=== PATIENT | female | born 1990 | race Caucasian/White ===

== ENCOUNTER → 2018-08-25 11:11 | Outpatient (CLI) | payer OTHER, SELFPAY ==
[2014-03-13 20:21] VITALS: BMI 26.7
[2018-08-25 17:51] LABS: Chlamydia Trachomatis by PCR Negative (Negative); Neisserai gonorrhoeae by PCR Negative (Negative); Probe Check PASS; Sample Adequacy Control PASS; Specimen Processing Control PASS
[2018-08-29 14:25] LABS: HPV Reflexed? NOT INDICATED
== END ==
PROVIDERS: Visit Provider Obstetrics & Gynecology
DX: Z12.4 Encounter for screening for malignant neoplasm of cervix (principal); Z11.3 Encounter for screening for infections with a predominantly sexual mode of transmission; Z32.01 Encounter for pregnancy test, result positive
CPT/HCPCS: 87491; 87591; 88175; G0145

== ENCOUNTER → 2018-09-13 11:45 | Outpatient (CLI) | payer OTHER, SELFPAY ==
[2014-03-13 20:21] VITALS: BMI 26.7
[2018-09-13 13:51] LABS: Color, Urine Yellow (Yellow); Glucose, Dipstick Normal (Normal); Ketone-Dipstick Negative (Negative); Leukocyte Esterase-Dipstick Negative /ul (Negative); Nitrite-Dipstick Negative (Negative); Occult Blood-Urine Negative /ul (Negative); Protein-Dipstick Negative (Negative); Specific Gravity, Urine 1.005 (1.002-1.030); Urine Bilirubin Dipstick Negative (Negative); Urine Clarity Sl. Cloudy (Clear); Urine Urobilinogen Normal (Normal)
[2018-09-13 13:59] LABS: COTININE Drug Screen Negative (<200 ng/mL)
[2018-09-13 14:02] LABS: Amphetamine Urine VISTA NEGATIVE (<1000 ng/mL); Barbiturate Urine VISTA NEGATIVE (< 200 ng/mL); Benzodiazepine Urine VISTA NEGATIVE (< 200 ng/mL); Cocaine Urine VISTA NEGATIVE (< 300 ng/mL); Ecstacy Urine VISTA NEGATIVE (< 500 ng/mL); Methadone Urine VISTA NEGATIVE (< 300 ng/mL); PCP Urine VISTA NEGATIVE (< 25 ng/mL); THC Urine VISTA NEGATIVE (< 50 ng/mL); Vista UDS pH Range 6
[2018-09-13 15:39] LABS: Absolute Lymphocyte Count 2.28 X10^3/ul (0.83-4.51); Absolute Neutrophil Count 5.1 X10^3/uL (2.0-7.7); Basophil# 0.03 X10^3/uL; Basophil% 0.4 % (0-1); Eosinophils% 1.3 % (0-5); Hematocrit 41.7 % (37-47); Hemoglobin 13.9 g/dl (12.0-15.0); Lymphocyte # 2.28 X10^3/ul (4.0); Lymphocyte % 28.6 % (19-41); Mean Corp Hgb Conc 33.3 g/gl (32-36); Mean Corpuscular Hgb 27.9 pg (27.0-32.0); Mean Corpuscular Volume 83.7 fL (81-99); Mean Platelet Vol. 9.9 fl (6.2-12.0); Monocyte# 0.41 X10^3/uL; Monocyte% 5.1 % (0-10); Neutrophil # 5.11 X10^3/uL (2.7-7.7); Neutrophil % 64.1 % (47-70); Platelet Count 297 K/mm3 (150-450); RBC Distribution Width CV 13.4 % (11.6-14.6); RBC Distribution Width SD 40.6 fl (35.1-43.9); Red Blood Count 4.98 M/mm3 (4.2-5.4)
[2018-09-13 15:42] LABS: POSITIVE COUNT NO; POSITIVE DIFFERENTIAL NO; POSITIVE MORPHOLOGY NO
[2018-09-13 16:02] LABS: Thyroid Stim Hormone (TSH) 3.32 uIU/mL (0.358-3.74)
[2018-09-13 17:00] LABS: HIV - WCH Non-Reactive (Nonreactive); Rubella IgG 109.6 IU/mL
[2018-09-16 03:32] LABS: Prenatal RPR NONREACTIVE (NONREACTIVE)
[2018-09-16 12:25] LABS: HEPATITIS B SURFACE AG Negative (Negative); Hep C Antibodies 0.1 s/co ratio (0.0-0.9)
== END ==
PROVIDERS: Visit Provider Obstetrics & Gynecology
DX: Z34.81 Encounter for supervision of other normal pregnancy, first trimester (principal)
CPT/HCPCS: 36415; 80307; 81002; 84443; 85025; 86703; 86762; 86803; 87340

== ENCOUNTER → 2019-01-12 10:24 | Outpatient (CLI) | payer OTHER, SELFPAY ==
[2019-01-12 10:47] LABS: Hematocrit 35.6 % (37-47); Hemoglobin 11.4 g/dL (12.0-15.0); Mean Corpuscular Hgb 27.8 pg (27.0-32.0); Mean Corpuscular Volume 86.8 fL (81-99); Mean Platelet Vol. 10.4 fl (6.2-12.0); Platelet Count 223 K/mm3 (150-450); RBC Distribution Width CV 13.2 % (11.6-14.6); RBC Distribution Width SD 41.6 fl (35.1-43.9); White Blood Count 10.7 K/mm3 (4.4-11.0)
[2019-01-12 10:54] LABS: Glucose Challenge Gest 1H 50g 148 mg/dL (70-140)
== END ==
PROVIDERS: Visit Provider Obstetrics & Gynecology
DX: Z34.83 Encounter for supervision of other normal pregnancy, third trimester (principal)
CPT/HCPCS: 36415; 82950; 85027

== ENCOUNTER → 2019-01-20 10:35 | Outpatient (CLI) | payer OTHER, SELFPAY ==
[2014-03-13 20:21] VITALS: BMI 26.7
[2019-01-20 16:04] LABS: Glucose Challenge Gest 1H 50g 154 mg/dL (70-140)
== END ==
PROVIDERS: Visit Provider Obstetrics & Gynecology
DX: Z34.83 Encounter for supervision of other normal pregnancy, third trimester (principal)
CPT/HCPCS: 36415; 82950

== ENCOUNTER → 2019-01-25 09:46 | Outpatient (CLI) | payer OTHER, SELFPAY ==
[2019-01-25 11:11] LABS: Glucose GTT-Gestation. Fasting 78 mg/dL (<105)
[2019-01-25 12:28] LABS: Glucose GTT-Gestational 1 Hr 164 mg/dL (<190)
[2019-01-25 13:57] LABS: Glucose GTT-Gestational 3 Hr 127 L (<145)
[2019-01-25 13:57] LABS: Glucose GTT-Gestational 2 Hr 150 mg/dL (<165)
== END ==
PROVIDERS: Obstetrics & Gynecology; Referring Provider Obstetrics & Gynecology; Visit Provider Obstetrics & Gynecology
DX: O24.912 Unspecified diabetes mellitus in pregnancy, second trimester (principal); Z3A.00 Weeks of gestation of pregnancy not specified
CPT/HCPCS: 36415; 82951; 82952

== ENCOUNTER → 2019-03-24 15:44 | Outpatient (CLI) | payer OTHER, SELFPAY ==
[2014-03-13 20:21] VITALS: BMI 26.7
== END ==
PROVIDERS: Visit Provider Obstetrics & Gynecology
DX: O99.89 Other specified diseases and conditions complicating pregnancy, childbirth and the puerperium (principal); R30.0 Dysuria; R39.15 Urgency of urination; Z3A.00 Weeks of gestation of pregnancy not specified
CPT/HCPCS: 87077; 87086; 87088; 87186

== ENCOUNTER 2019-03-29 10:25 | Inpatient (IN) | payer OTHER, SELFPAY ==
[2014-03-13 20:21] VITALS: BMI 26.7
[2019-03-29] VITALS (13 sets, daily range): BP systolic 104–128; BP diastolic 65–83; PULSE 76–110; RESP 16–20; TEMP 36.3–37.4; O2SAT 96–99; BMI 25.6
--- NOTE | 2019-03-29 09:23 | PCM.HP.BLA ---
History and Physical Date of Admission: 03/29/19 [facility] [place] ANTEPARTUM RECORD - HISTORY AND PHYSICAL (03/29/2019) Name: RAIMUNDO LAINEZ History of This : This is a 28-year-old patient who presents for her second section. 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 Given this, the patient desires general anesthesia with the surgery. OB Physician: ERIC [place]'s Physician: PED MEMBERSHIP SALES MANAGER ...................................................................... : 1990 Age: 28 [address]: [address] [place] [address] Phone: ([phone] (O) [phone] Insurance Carrier: [employer] [id number] Emergency Contact: DAVIN LAINEZ [phone] ...................................................................... Final ALISE: 04/05/19 By Ultrasound: 10 weeks 6 days PARITY: (G-Total Pregnancies P-Fullterm,Premature,Induced AB,Spont AB, Ectopics, Multiple,Living) ALISE CONFIRMATION: By LMP: 06/29/18 Initial Exam: 04/05/19 By First Ultrasound Exam: 03/30/19 Final ALISE: 04/05/19 GBS: Group B Beta Streptococcus is not isolated. OB PROBLEM LIST: ALLERGIC to Benadryl and Prednisone Brachial Plexus Neuropathy (patient) Elevated 1 hour PG--3 hr GTT 3 hr GTT all WNL 's niece has Down Syndrome MSAFP and CF testing declined Prior C/S delivery 2013.. 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 Drug Use - denies use of street drugs Sexual Activity - Residence - lives with Place of - [place] Hours Worked - 40 hours per week Spouse-Sig Other Name - Davin Lainez Spouse-Sig Other Occupation - [employer] Spouse-Sig Other Phone No - [phone] cell Children Name(s) - Carlos Conte 03/2014 (jhony) PRIOR DELIVERY HISTORY DEL DATE GEST LAB WT LB WT OZ TYPE ANES LABOR TX 03 Mar 25 42 8 7 8 C-Sec Epidural No ANTEPARTUM FLOW CHART VISIT GE RTC FU F F VT U U DATE WK MD WKS HT PN HR M SS BP ED WT VT GL D EF ST __ ____ ___ __ __ ___ __ __ __ ___ __ __ __ ___ __ 11 Mar JMW 3 38 + + 106/0 0 146 - - 04 Mar JMW 1 37 + + 118/84 0 145 - - Feb JMW 1 36 + + 104/70 0 144 - tr Feb JMW 1 35 + + 134/72 tr 151 tr - Feb JMW 2 33 + + 92/78 0 144 - - Feb 09 JMW 2 31 + + 112/66 tr 144 tr - 03 Feb 06 JMW 3 29 + + 104/72 0 142 - 1+ 06 Jan 03 JMW 4 24 + + 130/68 0 143 - - Nov 29 SHM 4 20 + + 122/72 sl 137 tr - Oct 23 JMW 5 14 + O 122/76 0 134 - - Sep 19 DS 4 12 ? U+ 90/68 0 136 - - ANTEPARTUM NOTE(S): Mar 22 2019: Doing Well and Good FM Mar 15 2019: Good FM Mar 08 2019: feeling well. Mar 02 2019: Good FM, Occ discomforts Feb 16 2019: feeling well. Feb 02 2019: Feeling Well, Good FM Jan 12 2019: see note, One Hr PG today Dec 16 2018: Glucola/Instructions Given,Good FM Nov 18 2018: doing well, comp u/s today Oct 11 2018: Doing Well, Declines AFP Sep 13 2018: see note COMPREHENSIVE ANTEPARTUM NOTE(S): Mar 24 2019: Raimundo is here for a UTI check 38 w 2 d GA. 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 She reports good FM. Denies spotting/leaking fluid/cramping. Weight in office today: 146.6 lbs. Temp: 98.1 (orally), and B/P: 120/80 (left arm, reg cuff, sitting). CCMS urine specimen obtained. Urine is yellow and cloudy, no strong odor noted. Long urine dip shows 2+ leukocytes, 1+ protein, ph of 6.6, 2+ blood, specific gravity of 1.010, and TR glucose; all other values are NEG. Report to Dr. Gibbs, urine to be sent for C+S, and Keflex escripted to pt's pharmacy; Pyrdium also escripted, but Raimundo states that she will likely decline that prescription. Reviewed directives with Raimundo, she is aware that C+S results will take 2-3 days, and unless she hears otherwise from this office, she needs to complete her entire course Keflex. Encouraged to increase her water intake, and stop drinking/eating sugary drinks/foods, and drinks and foods with caffeine. Bedroom and bathroom hygiene reviewed. She will call the office if her s/s do not improve, or become worse. AW Mar 22 2019: Raimundo, and son are here for visit and post op instructions. Baby active. Edema only occ at end of the day. Op permit signed. Informational booklet about OR and CS given. Given info and directions twice about surgical scrub. Understanding voiced. Excited about baby. MICHAEL. Feb 02 2019: (m,m*) Reports +FM, +FHR 158. Baby very active. No questions or concerns today. Reviewed danger signs and when to call. Will return in 2 weeks to see JW. - Jan 12 2019: Raimundo is being seen for PNV. Pt is feeling well. Pt arrived late for Glucola drawn today. AM Nov 18 2019: US anatomy wnl, 79th%. MALE, circ planned. Pt leaning towards repeat C/S. Sep 13 2018: Doing well. US completed today and is c/w LMP dating. NOB nurse intake and labs completed today. Sep 13 2018: Raimundo is here for her NOB visit at 10 w 6 d, she is a with an ALISE of 04/05/2019. She and her , Davin, have a 4 year old son at home; both accompany Raimundo today. Her son was delivered at [facility] by C/S due to non-reassuring FHT's. At this time, she is not sure if she wants to have a repeat C/S or attempt a . Past history updated. Delivery at [facility] is planned, and she will breastfeed. Office practice patterns reviewed, including labs that will be collected today. Emergencies/danger signs to report, round ligament pain, reporting s/s of a UTI, and common OTC medications approved/not approved for use during reviewed. She states that she generally feels well, and only feel nauseous when her stomach is empty. Reviewed need for small frequent meals with protein included throughout the day and adequate water hydration of at least one gallon per 24 hours. She takes an OTC vitamin and tolerates this well. Raimundo also takes an Adrenal supplement and states that this has helped her significantly, especially with anxiety. She is a life long non-smoker, and denies use of drugs or ETOH. Genetic Screening form completed, her has a niece with Down Syndrome. Raimundo declines MSAFP and CF testing, consent signed as such. She has Brachial Plexus Neuropathy. Dietary and water needs reinforced, including caloric needs, recommended weight gain, limiting empty calories, and limiting caffeine to one cup a day. Printed guide for food safety provided with review. Exercise recommendation and restrictions for lifting reviewed. Raimundo states that she understands all information provided during NOB visit, and she has no questions following same. AW New Aug 29 2018: pap and GC/chlamydia NEG EB Aug 25 2018: Raimundo is a 28 yr old Gr2, P1 here w/her , Davin and their son, Carlos, for Missed Menses. Hx regular monthly periods. LMP 06/29/18 which would make her 8 wks 1 day, ALISE 04/05/19. Reporting nausea, some vomiting particularly when she gets nervous or anxious. No cramping or bleeding. Reviewed importance of hydration with at least 10-12 large glasses water daily. Taking a PNV; diffuses essential oils, but can not say which ones. Hx C/S @ 41 wks, non-reassurring FH tracing. Hx Brachial Plexus Neruopathy as a child. Some contractures of her fingers and limited movements. Pap, GC/Chlamydia done today. Non-smoker. informational materials given and reviewed otc meds ok to take. NO NSAIDS. kbm REVIEW OF SYSTEMS: GENERAL - Denies fever, or chills SKIN - Denies rash, new skin lesions, or change in moles EYES - Denies blurred vision, or change in visual acuity EARS - Denies ear pain, or difficulty hearing NOSE - Denies nasal congestion, discharge, or bleeding MOUTH - Denies sore throat, or difficulty swallowing NECK - Denies pain or swelling RESPIRATORY - Denies shortness of breath, cough, wheezing CARDIOVASCULAR - Denies palpitations, chest pain, orthopnea, PND, peripheral edema, syncope or claudication GASTROINTESTINAL - Denies nausea, vomiting, diarrhea, constipation, Denies abdominal pain, melena and or bright red blood GENITOURINARY - Denies dysuria, frequency of urination, urgency, or hesitancy MUSCULOSKELETAL - Denies joint or muscle pain, or back pain NEUROLOGICAL - Denies localized numbness, weakness, or tingling PSYCHIATRIC - Denies depression, anxiety, substance abuse or suicide attempts ENDOCRINE - Denies heat or cold intolerance, weight loss or gain, increasing thirst HEMATO-IMMUNOLOGIC - Denies easy bruising, bleeding, oral ulcerations or recurrent infections GENETICS SCREENING: Age 35+ years: No Thalassemia: No Neural Tube Defect: No Down Syndrome: 's niece SUNDAR-SACHS: No Sickle Cell Disease: No Hemophilia: No Musc. Dystrophy: No Cystic Fibrosis: No-declines screening [place] Chorea: No Mental Retardation: No Fragile X: No Other genetic: No Other defects: No SABs/still births: No Drugs since LMP: No INFECTION HISTORY: High risk AIDS: No High risk Hepatitis: No Exposed to TB: No Exposed to Herpes: No Rash/viral illness since LMP: No History of STD: No MENSTRUAL HISTORY: *Menses Regularity: RegularMenarche (Age Onset): 13* PAST SUMMARY: PARITY: 1. Total Pregnancies............ 2 2. Full Term Pregnancies........ 1 3. Premature.................... 0 4. Abortions - Induced.......... 0 5. Abortions - Spontaneous...... 0 6. Ectopics..................... 0 7. Multiple Births.............. 0 8. Living Children.............. 1 PAST #1: Date of :.................. 03/14/14 Gestation Weeks:................ 42 Length of labor(hours):......... 8 Sex:............................ M Weight-lbs:............... 7 Weight-oz:................ 8 Type of Delivery:............... C-Sect Type of Anesthesia:............. Epidural Place of Delivery:.............. [place] Treatment of Labor?:.... No Comment: IOL, NON-REASS FHT'S PHYSICAL EXAMINATION General Appearence: 28 yo female in no acute distress Vital Signs: AF, VSS Heart: RRR without rubs or gallops Lungs: CTA x 2 Breasts: deferred Abdomen: gravid Pelvis: Cervix: Presentation: cephalic Station: Fetus: Size: AGA Movement: present Heart: present Labs for : RAIMUNDO LAINEZ since 07/09/2018 ORDER DATEIN DESCRIPTION VALUE UNITS RANGE A+ COMMENT CULTURE, URINE 03/24/19 NOTE Original Ordering Provider: Michelle Gibbs Urine Culture ORGANISM 1: Enterococcus faecalis [place] Count 25,000-50,000 Enterococcus faecalis: REACTION Ampicillin $ <=2 S Ciprofloxacin $ <=0.5 S Gentamicin SYN-S S Levofloxacin $ 1 S Linezolid $$$$ 2 S Nitrofurantoin $ <=16 S Streptomycin $ SYN-S S Tetracycline NF <=1 S Vancomycin $ <=0.5 S Reference Range: S= Susceptible, I= Intermediate, R= Resistant MICS are expressed in micrograms per mL * CLSI guidelines does not recommend testing of cephalosporins. This interpretation is deduced from Beta-lactam/penicillin results. (NF) indicates non-formulary drug at [facility]. Approval by Infectious Disease Specialist required before non-formulary drugs may be ordered and/or dispensed. Reviewed by MICHELLE CULTURE URINE 02/07/19 NOTE Original Ordering Provider: JOELLE FORDE CULTURE URINE _URINE CULTURE_ M I C R O B I O L O G Y R E P O R T FINAL Antimicrobial Susceptibility and Organism Identification Report Specimen Number : [id number] Requested : 02/07/19 Specimen Source : CLEAN CATCH URINE Collected : 02/07/19 10:00 [place] of Isolation : OUTPATIENT Received : 02/07/19 10:00 Requesting Physician : EULA Patient/Specimen Tests and Comments Specimen Comments FINAL REPORT: URINE COLONY COUNT: > THAN 100,000 CFU/CC STREPTOCOCCUS VIRIDANS GROUP Tech : Source : CLEAN CATCH URINE ID # : [id number] FINAL Report Date : / / : Collected : 02/07/19 10:00 02/10/[id number]. 02/09/[id number]. 02/10/[id number] Reviewed by MICHELLE GESTATIONAL GTT 3HR 100G 01/25/19 NOTE Original Ordering Provider: Joelle Forde GLU GTT-FASTING 78 mg/dL <105 GLUCOSE TOLERANCE TEST FOR Reference Interval GESTATIONAL DIABETES Fasting <105 mg/dL 1 hour <190 mg/dl 2 hour <165 mg/dl 3 hour <145 mg/dl GLU GTT- 1HR 164 mg/dL <190 GLU GTT- 2HR 150 mg/dL <165 GLU GTT- 3HR 127 L <145 Reviewed by MICHELLE GLUCOSE CHALLENGE GEST 1H 50G 01/20/19 NOTE Original Ordering Provider: Joelle Forde GLU GEST 50G 1H 154 mg/dL 70-140 H Reviewed by MICHELLE GLUCOSE CHALLENGE GEST 1H 50G 01/12/19 NOTE Original Ordering Provider: Joelle Forde GLU GEST 50G 1H 148 mg/dL 70-140 H Reviewed by JOELLE CBC-COMPLETE BLOOD CNT NO DIFF 01/12/19 NOTE Original Ordering Provider: Joelle Forde WBC 10.7 K/mm3 4.4-11.0 RBC 4.10 M/mm3 4.2-5.4 L HGB 11.4 g/dL 12.0-15.0 L HCT 35.6 % 37-47 L MCV 86.8 fL 81-99 MCH 27.8 pg 27.0-32.0 MCHC 32.0 g/dL 32-36 RDW CV 13.2 % 11.6-14.6 RDW SD 41.6 fl 35.1-43.9 PLT 223 K/mm3 150-450 MPV 10.4 fl 6.2-12.0 Reviewed by JOELLE HEPATITIS C ANTIBODIES 09/13/18 NOTE Original Ordering Provider: Cristino Culp HEP C AB 0.1 s/co ratio 0.0-0.9 Negative: < 0.8 Indeterminate: 0.8 - 0.9 Positive: > 0.9 The CDC recommends that a positive HCV antibody result be followed up with a HCV Nucleic Acid Amplification test (427020). Reviewed by MICHELLE HEPATITIS B SURFACE AG 09/13/18 NOTE Original Ordering Provider: Cristino Culp HB SURF AG Negative Negative Performed at: [place] [id number] [employer] Operator: Gonzalo Lomas PhD, Phone: [phone] Reviewed by MICHELLE RPR 09/13/18 NOTE Original Ordering Provider: Cristino Culp RPR NONREACTIVE NONREACTIVE Reviewed by MICHELLE T AND S-NO CHARGE W/PNP 09/13/18 Reason for Type AND Screen/Red Cells: Surgery? N [facility]~[address] [place], [address]~ BLOOD TYPE GEL A POSITIVE N AB SCREEN GEL NEGATIVE N Reviewed by CRISTINO HIV - [facility] 09/13/18 NOTE Original Ordering Provider: Cristino Culp HIV - [facility] Non-Reactive Nonreactive Reviewed by CRISTINO RUBELLA IGG 09/13/18 NOTE Original Ordering Provider: Cristino Culp RUBELLA IGG 109.6 IU/mL Antibody results Interpretation of Immune Status < 5 IU/ml Presumed Non-immune 5 - < 10 IU/ml Equivocal > or = 10 IU/ml Presumed Immune Reviewed by CRISTINO THYROID STIM HORMONE (TSH) 09/13/18 NOTE Original Ordering Provider: Cristino Culp TSH 3.32 uIU/mL 0.358-3.74 Reviewed by CRISTINO CBC W/DIFF, AUTOMATED 09/13/18 NOTE Original Ordering Provider: Cristino Culp WBC 8.0 K/mm3 4.4-11.0 RBC 4.98 M/mm3 4.2-5.4 HGB 13.9 g/dl 12.0-15.0 HCT 41.7 % 37-47 MCV 83.7 fL 81-99 MCH 27.9 pg 27.0-32.0 MCHC 33.3 g/gl 32-36 RDW CV 13.4 % 11.6-14.6 RDW SD 40.6 fl 35.1-43.9 PLT 297 K/mm3 150-450 MPV 9.9 fl 6.2-12.0 NEUT% 64.1 % 47-70 LY% 28.6 % 19-41 MONO% 5.1 % 0-10 EO% 1.3 % 0-5 BASO% 0.4 % 0-1 IM GRAN % 0.500 % 0.0-0.9 IG% - Immature Granulocytes (promyelocytes, myelocytes and metamyelocytes) > 1% indicates that a LEFT SHIFT is Present. ABSOLUTE NEUT 5.1 X10 3/uL 2.0-7.7 ABSOLUTE LYMPH 2.28 X10 3/ul 0.83-4.51 Reviewed by CRISTINO NICOTINE URINE DRUG SCREEN 09/13/18 NOTE Original Ordering Provider: rCistino Culp TO BE CONFIRMED CONFIRMATORY TESTING FOR ALL POSITIVE URINE DRUG SCREEN RESULTS WILL ONLY BE SENT OUT UPON PHYSICIAN ORDER. The results of Urine Drug Screen methods provide only preliminary analytical test results. A more specific alternate chemical method must be used in order to obtain a confirmed analytical result. Gas chromatography/mass spectrometery (GC/MS) is the preferred confirmatory method. Clinical consideration and professional judgement should be applied to any drug of abuse test result, particularly when preliminary positive results are used. COT DRG SCREEN Negative <200 ng/mL Cotinine is the first-stage metabolite of Nicotine. Reviewed by CRISTINO URINE DRUG SCREEN (VISTA) 09/13/18 NOTE Original Ordering Provider: Cristino Culp TO BE CONFIRMED CONFIRMATORY TESTING FOR ALL POSITIVE URINE DRUG SCREEN RESULTS WILL ONLY BE SENT OUT UPON PHYSICIAN ORDER. ANISHATA Urine Drug Screen methods provide only preliminary analytical test results. A more specific alternate chemical method must be used in order to obtain a confirmed analytical result. Gas chromatography/mass spectrometery (GC/MS) is the preferred confirmatory method. Clinical consideration and professional judgement should be applied to any drug of abuse test result, particularly when preliminary positive results are used. URINE TCA TESTING MUST BE ORDERED SEPARATELY. USE TEST MNEMONIC: [place] UDS PH 6 AMPHETAMINES NEGATIVE <1000 ng/mL BARBITIURATES NEGATIVE < 200 ng/mL BENZODIAZIPINE NEGATIVE < 200 ng/mL COCAINE NEGATIVE < 300 ng/mL ECSTACY NEGATIVE < 500 ng/mL METHADONE NEGATIVE < 300 ng/mL OPIATES NEGATIVE < 300 ng/mL PCP NEGATIVE < 25 ng/mL THC NEGATIVE < 50 ng/mL Reviewed by CRISTINO Reviewed by CRISTINO Reviewed by CRISTINO URINALYSIS, ROUTINE (DIPSTICK) 09/13/18 NOTE Original Ordering Provider: Cristino Culp COLOR Yellow Yellow CLARITY Sl. Cloudy Clear GLUCOSE, UR Normal mg/dl Normal BILIRUBIN URINE Negative mg/dL Negative KETONE UR Negative mg/dl Negative SP.GR. DIPSTX 1.005 1.002-1.030 PH UR 7.0 5.0 - 8.0 PROT DIPSTX Negative mg/dl Negative UROBILI Normal mg/dl Normal NITRITE UR Negative Negative OCCULT BLOOD-UR Negative /ul Negative LEUK ESTERASE Negative /ul Negative Reviewed by CRISTINO Reviewed by MICHELLE Reviewed by MICHELLE PAP I-G W/RFX HRHPV 08/25/18 NOTE Original Ordering Provider: Cristino Culp DIAGN . NEGATIVE FOR INTRAEPITHELIAL LESION OR MALIGNANCY. ADEQ . Satisfactory for evaluation. No endocervical component is identified. An endocervical component is not commonly seen in the patient. PERFORM . Lissett Fer[employer] Contact [employer]inter (ASCP) TEST METHOD . This liquid based ThinPrep(R) pap test was screened with the use of an image guided system. COMM . . PAPSMR . The Pap smear is a screening test designed to aid in the detection of premalignant and malignant conditions of the uterine cervix. It is not a diagnostic procedure and should not be used as the sole means of detecting cervical cancer. Both false-positive and false-negative reports do occur. HPV RFLX . The HPV DNA reflex criteria were not met with this specimen result therefore, no HPV testing was performed. Performed at: [address], [place] [id number] [employer] Operator: Cori Costello MD, Phone: [phone] Reviewed by MICHELLE ZENDEJAS/TAMY [facility] BY PCR 08/25/18 NOTE Original Ordering Provider: Cristino HERNÁNDEZ TRA PCR Negative Negative NG BY PCR Negative Negative Reviewed by CRISTINO Impression /Plan: 39-week intrauterine prior section. Discussed RBA's and all questions answered. Preparations in progress for delivery.
[2019-03-29] MEDS: Lactated Ringers 1,000 ML 999 ML IV (10:50)
[2019-03-29 11:11] LABS: Absolute Lymphocyte Count 2.16 X10^3/uL (0.83-4.51); Absolute Neutrophil Count 10.5 X10^3/uL (2.0-7.7); Basophil# 0.04 X10^3/uL; Basophil% 0.3 % (0-1); Eosinophil# 0.04 X10^3/uL; Eosinophils% 0.3 % (0-5); Hemoglobin 11.7 g/dL (12.0-15.0); Lymphocyte # 2.16 X10^3/ul (4.0); Lymphocyte % 15.9 % (19-41); Mean Corp Hgb Conc 31.6 g/dL (32-36); Mean Corpuscular Hgb 25.4 pg (27.0-32.0); Mean Corpuscular Volume 80.3 fL (81-99); Mean Platelet Vol. 11.4 fl (6.2-12.0); Monocyte# 0.68 X10^3/uL; NRBC Flagged by Analyzer 0 % (0-5); Neutrophil # 10.51 X10^3/uL (2.7-7.7); Neutrophil % 77.4 % (47-70); Platelet Count 216 K/mm3 (150-450); RBC Distribution Width CV 14.7 % (11.6-14.6); RBC Distribution Width SD 42.3 fl (35.1-43.9); Red Blood Count 4.61 M/mm3 (4.2-5.4); White Blood Count 13.6 K/mm3 (4.4-11.0)
[2019-03-29] MEDS: Sodium Citrate/Citric Acid 30 ML UDC PO (11:48)
[2019-03-29] MEDS: Lactated Ringers 1,000 ML 150 ML IV (11:49)
[2019-03-29] MEDS: Cefazolin 2 GM in 0.9% Normal Saline 100 ML IV (11:56)
[2019-03-29] MEDS: Methylergonovine 0.2 MG/ML Ampul IM (12:33)
--- NOTE | 2019-03-29 13:06 | PCM.OPRPT ---
Delivery Classification: Scheduled Final ALISE: 04/05/19 Final ALISE Source: US <20 weeks Gestational age: 39 Weeks and 0 Days maintenance electrician: Tara Coleman Type of Anesthesia:: General - Endotracheal Date of Procedure: 03/29/19 Pre-Operative Diagnosis: Term Intrauterine , Prior Section Post-Operative Diagnosis: Term Intrauterine , Prior Section Description of Procedure: Surgeon: Zach Goldstein MD, FACOG Anesthesia: Ronny Guzman MD Findings: Viable male with Apgars of 8/9 in occiput anterior presentation with clear amniotic fluid and normal three-vessel placenta with cord around the neck x1 tight. Indication: This is a 28-year-old who presents for her second at 39+ weeks gestation. care has otherwise been uneventful except the patient had a brachial plexus contracture after her last delivery which she attributed to regional anesthetic during her section. Given this the patient desires general anesthetic with this procedure. The patient has been counseled regarding the risk and indications of this procedure including the possibility of bleeding infection and injury to surrounding structures such as bowel bladder. All questions were answered. Procedure: Patient was taken to the operating room and was prepped and draped in usual sterile fashion and a Avendano catheter was placed. No anesthetic was given. The abdomen was entered through the patient's prior Pfannenstiel incision and peritoneum was entered bluntly. After developing a bladder flap on the lower uterine segment a low transverse incision was made on the uterus and head was easily delivered onto the operative field the nose mouth and oropharynx were bulb suctioned. Subsequently a viable male was born with Apgars of 8/9. The was noted to cry move all extremities vigorously on the operative field. The umbilical cord was doubly clamped and ligated and handed to the nursery personnel who were present for the delivery. Placenta was delivered and noted to be 3 vessels and normal. Uterus was exteriorized and remaining placental tissue was removed. The uterus was then closed in 2 layers first with running locked 0 Vicryl suture followed by a second imbricating layer with 0 Vicryl suture. 0 Vicryl suture was then used in a horizontal mattress interrupted fashion to affect final hemostasis of the uterine incision line. Normal fallopian tubes and ovaries were visualized and the uterus was returned to the pelvis. Hemostasis was noted and rectus abdominis muscles were reapproximated in the midline with interrupted Number 0 Vicryl suture in a horizontal mattress fashion. Fascia was closed with running Number 1 PDS Strata fix suture. Subcutaneous tissue was irrigated with copious amounts of saline solution and then closed with running 3-0 Vicryl suture. Skin was closed with 4-0 monocryl suture in a running subcuticular fashion. Steri strips and Mepilex dressing were placed across the incision. The patient tolerated the procedure well and was taken to the recovery room in satisfactory condition. Sponge, needle, and instrument counts were all reportedly correct. EBL was less than 500 cc. Ancef 2 gms IV was given prior to the procedure. Spicemen to Pathology: None Complications: None Amniotic Fluid Description: Clear Placenta Disposition: [facility] Fluids Replaced: Crystalloid Cord Entanglement: Around neck x 1, tight Cord Vessel Description: 3 Vessels Esitmated Blood Loss (ml): 500 cc Infant Gender: Male (1 minute): 8 (5 minute): 9 Antibiotic Given: Ancef 2 grams IV x1 Pt instructed on risks of surgery: Bleeding, Anesthesia Risks, Infection, Injury to surrounding structure(s) including bowel and bladder Complications: None
--- NOTE | 2019-03-29 13:12 | DCINST_ITS ---
Discharge Diet: No Restrictions Discharge Activity: May not drive while taking narcotic pain medications., May Shower, May Take a Tub Bath May resume sexual activity in: 4-6 weeks Lifting Restrictions: 20 pounds Additional Activity Instructions:: Nothing in the vagina for 4-6 weeks. You may return to work/school in 6 weeks. Call your doctor if your incision/area has: Continuous Slow Oozing, Sudden Increased Bleeding, Increased Pain/ Swelling, Increased Redness, Foul Smelling Discharge Call your doctor if you observe: Fever of 101 or Higher, Inability to urinate, Inability to have a bowel movement, Using more than one pad per hour Additional Instructions: If you experience any of the following, contact your healthcare provider. * Bleeding that soaks a pad every hour for 2 hours * Unrelieved incision or abdominal pain * Swelling, redness, discharge or bleeding from your incision or episiotomy site * Your incision begins to separate * Problems urinating (including inability to urinate or burning while urinating). * Visual changes * Severe headache * Flu-like symptoms * Pain or redness in one of both of your breasts * Pain, warmth, tenderness or swelling in your legs, especially the calf area * Frequent nausea and vomiting * Symptoms of depression or anxiety If you experience any of the following, call 911 or go to the nearest Emergency Room. * Chest pain * Problems breathing * Seizure activity * Partial or complete paralysis of a body part, slurred speech, weakness or drooping of the face, or a sudden inability to walk or hold your balance Allergies/Adverse Reactions: Allergies diphenhydramine HCl [From Benadryl] Allergy (Verified 03/29/19 10:38) Unknown prednisone Adverse Reaction (Verified 03/29/19 10:38) Other hallucinations Medications to take at Discharge Vits [Prenatabs FA ] 1 tablet PO DAILY 03/13/14 Docusate Sodium [Colace] 100 mg PO BID PRN PRN #60 cap 03/29/19 Oxycodone [Oxyir] 5 mg PO Q6H PRN PRN 7 Days #20 tablet 03/29/19 The following prescriptions were given: Docusate Sodium [Colace] 100 mg PO BID PRN PRN #60 cap PRN Reason: Constipation Transmission Status: Pending to [facility] [id number] Oxycodone [Oxyir] 5 mg PO Q6H PRN PRN 7 Days #20 tablet PRN Reason: Pain Score 6-10/10 Transmission Status: Received by [facility] [id number] Follow-Up: Call to make an appointment with your doctor for an incision check in 1-2 weeks. You will also need a 6 week post- follow up appointment. Test results from this visit will be discussed in further detail at your follow- up appointment, if applicable. Please Follow Up With: Zach Goldstein MD - [phone] When: Call to make an appointment for an incision check in 2 weeks. Primary Care Physician: Care Physician,No Primary [Primary Care Provider] -
[2019-03-29] MEDS: Oxytocin 30 units/NS 500 ml 30 UNITS/500 ML IV.SOLN 167 UNITS IV (13:26)
[2019-03-29] MEDS: HYDROmorphone 1 MG/ML Syringe IV (14:03)
[2019-03-29] MEDS: Lactated Ringers 1,000 ML 100 ML IV (16:48)
[2019-03-29] MEDS: Ketorolac 30 MG/ML Syringe IV (18:35)
[2019-03-29] MEDS: 0.9% Saline Lock 10 ML Syringe IV (18:35)
--- NOTE | 2019-03-29 18:40 | NURSING ---
Patient assisted to edge of bed at this time. Binder placed on patient. Reports that she is not ready to ambulate at this time but would like to remain sitting up. Support person at bedside. Patient denies feeling unwell or dizzy. Call light in reach. Will continue to monitor.
[2019-03-29] MEDS: Cefazolin 1 GM/50 ML BAG IV (20:13)
[2019-03-29] MEDS: Enoxaparin 30 MG/0.3 ML Syringe SC (20:14)
[2019-03-30 00:15] VITALS: BP 111/64; PULSE 102; RESP 18; TEMP 36.6; O2SAT 96
[2019-03-30] MEDS: Ketorolac 30 MG/ML Syringe IV ×4 (00:36→18:21)
--- NOTE | 2019-03-30 01:21 | NURSING ---
2139-called dr pineda, made aware of pt lt pupil to be slightly smaller than rt-states he does not feel this is d/t pt receiving general, to contact construction operations manager.
--- NOTE | 2019-03-30 01:22 | NURSING ---
2144-called dr saenz made aware of pt lt pupil being smaller than rt, and no other abnormalities. to continue to monitor and to notify of any other abnormals. if this persists until her 1weeks post op visit in the office will have her follow up with opthamologist.
[2019-03-30] MEDS: Lactated Ringers 1,000 ML 100 ML IV (02:06)
[2019-03-30] MEDS: Cefazolin 1 GM/50 ML BAG IV (04:19)
[2019-03-30 04:23] VITALS: BP 104/70; PULSE 95; RESP 18; TEMP 36.7; O2SAT 96
[2019-03-30 05:18] LABS: Hematocrit 27.4 % (37-47); Hemoglobin 8.7 g/dL (12.0-15.0); Mean Corp Hgb Conc 31.8 g/dL (32-36); Mean Corpuscular Hgb 25.4 pg (27.0-32.0); Mean Corpuscular Volume 80.1 fL (81-99); Mean Platelet Vol. 11.5 fl (6.2-12.0); Platelet Count 177 K/mm3 (150-450); RBC Distribution Width CV 14.6 % (11.6-14.6); RBC Distribution Width SD 42.7 fl (35.1-43.9); Red Blood Count 3.42 M/mm3 (4.2-5.4); White Blood Count 13.4 K/mm3 (4.4-11.0)
[2019-03-30] MEDS: 0.9% Saline Lock 10 ML Syringe IV ×3 (07:47→18:21)
[2019-03-30 08:10] VITALS: BP 106/65; PULSE 80; RESP 16; TEMP 37; O2SAT 98
--- NOTE | 2019-03-30 08:34 | PCM.PN.OB ---
Subjective: Patient without complaints. Tolerating diet well. Breast-feeding going well. Positive flatus. Pain well controlled and minimal vaginal bleeding reported. - Physical Exam Vitals/I&O's: Vital Signs Temp Pulse Resp BP Pulse Ox 98.6 F 80 16 106/65 98 03/30/19 08:10 03/30/19 08:10 03/30/19 08:10 03/30/19 08:10 03/30/19 08:10 Oxygen Delivery Method Room Air Weight: 144 lb 13.499 oz Body Mass Index (BMI) 25.6 Intake and Output for Last 24 Hours 03/28/19 03/29/19 03/30/19 23:59 23:59 23:59 Intake Total 2848.19 / 2848.19 1826.67 / 1826.67 Output Total 2250 / 2250 2400 / 2400 Balance 598.19 / 598.19 -573.33 / -573.33 Comment: Wound CDI. Good urine output. CBC okay. Laboratory Results 03/29/19 10:50: WBC 13.6 H, RBC 4.61, Hgb 11.7 L, Hct 37.0, MCV 80.3 L, MCH 25.4 L, MCHC 31.6 L, RDW Std Deviation 42.3, RDW Coeff of Joon 14.7 H, Plt Count 216, MPV 11.4, Immature Gran % (Auto) 1.100 H, Neut % (Auto) 77.4 H, Lymph % (Auto) 15.9 L, [place] % (Auto) 5.0, Eos % (Auto) 0.3, Baso % (Auto) 0.3, Absolute Neuts (auto) 10.5 H, Absolute Lymphs (auto) 2.16, Nucleated RBC % 0 03/29/19 10:50: Blood Type A POSITIVE, Antibody Screen NEGATIVE 03/30/19 04:45: WBC 13.4 H, RBC 3.42 L, Hgb 8.7 L, Hct 27.4 L, MCV 80.1 L, MCH 25.4 L, MCHC 31.8 L, RDW Std Deviation 42.7, RDW Coeff of Joon 14.6, Plt Count 177, MPV 11.5 Current Medications Acetaminophen (Tylenol) 1,000 mg PO Q8H PRN PRN PRN Reason: Pain Score 1-3/10;Temp>99.6F Bisacodyl (Dulcolax) 10 mg RECTAL UD PRN PRN Reason: If no BM Hydrocortisone (Hytone) 1 applic TOPICAL TID PRN PRN; Protocol PRN Reason: Discomfort Hydromorphone HCl (Dilaudid Inj) 0.5 - 1.5 mg IV Q3H PRN PRN PRN Reason: Pain Score 4-10/10 Stop: 03/30/19 13:36 Last Admin: 03/29/19 14:03 Dose: 0.5 mg Documented by: Naloxone HCl 4 mg/ Dextrose 504 mls @ 0 mls/hr IV .Q0M PRN; Protocol PRN Reason: Respiratory depression Ibuprofen (Motrin) 600 mg PO Q6H PRN PRN PRN Reason: Pain Score 1-3/10 Ketorolac Tromethamine (Toradol) 30 mg IV Q6H PALLAVI Stop: 03/31/19 13:01 Last Admin: 03/30/19 06:39 Dose: 30 mg Documented by: Methylergonovine Maleate (Methergine) 0.2 mg IM X1 PRN PRN Reason: Uterine Atony Last Admin: 03/29/19 12:33 Dose: 0.2 mg Documented by: Naloxone HCl (Narcan) 0.02 mg IV Q1M PRN PRN Reason: RR <10 and pt unresponsive Ondansetron HCl (Zofran) 4 mg IV Q4H PRN PRN PRN Reason: Nausea Oxycodone HCl (Oxyir) 5 - 10 mg PO Q4H PRN PRN PRN Reason: Pain Score 4-10/10 Prochlorperazine Edisylate (Compazine Iv) 10 mg IV Q6H PRN PRN PRN Reason: NAUSEA Senna/Docusate Sodium (Senokot-S, Amrgie-Colace) 0 tablet PO DAILY PRN PRN Reason: Constipation Simethicone (Mylicon) 80 mg PO PCHS PRN PRN Reason: Indigestion/stomach pain Sodium Chloride () 5 - 15 ml IV UD PRN PRN Reason: SALINE FLUSH Last Admin: 03/30/19 07:47 Dose: 10 ml Documented by: Zolpidem Tartrate (Ambien (Generic)) 5 mg PO QHS PRN PRN PRN Reason: Insomnia Medical Necessity - Tobacco Use Smoking Status: Never smoker Assessment/Plan Doing well postoperative day #1 status post repeat . Continuing present care.
[2019-03-30 12:30] VITALS: BP 93/75; PULSE 101; RESP 16; TEMP 36.7
[2019-03-30 17:51] VITALS: BP 124/79; PULSE 83; RESP 16; TEMP 36.8
[2019-03-30 20:05] VITALS: BP 118/68; PULSE 97; RESP 18; TEMP 36.9; O2SAT 98
[2019-03-31] MEDS: Ketorolac 30 MG/ML Syringe IV ×2 (00:32→06:37)
[2019-03-31] MEDS: 0.9% Saline Lock 10 ML Syringe IV ×2 (00:34→06:37)
[2019-03-31 01:05] VITALS: BP 111/75; PULSE 77; RESP 16; TEMP 36.5; O2SAT 98
[2019-03-31 08:00] VITALS: BP 108/65; PULSE 82; RESP 16; TEMP 36.6
--- NOTE | 2019-03-31 08:58 | DS.PCM_ITS ---
Discharge Date and Diagnosis Date of Admission: 03/29/19 Date of Discharge: 03/31/19 Hospital Course and Treatment Operations: - - primary c/s Summary of Care Provided: The patient is a 28 year old F [] Subjective: Feeling well, with mild cramping. Wants to go home today. Reports +flatus. Objective: VSS. Fundus at umbilicus, after urination fundus u/1. Incision CDI with two steri strips, one steri strip had fallen off. Area was not red, warm, or weeping. Educated on proper incision care and two week follow up. Post-op day #2 with adequate urine output and pain control. - Physical Exam Vitals/I&O's: Vital Signs Temp Pulse Resp BP Pulse Ox 97.7 F L 77 16 111/75 98 03/31/19 01:05 03/31/19 01:05 03/31/19 01:05 03/31/19 01:05 03/31/19 01:05 Oxygen Delivery Method Room Air Weight: 65.7 kg Body Mass Index (BMI) 25.6 Intake and Output for Last 24 Hours 03/29/19 03/30/19 03/31/19 23:59 23:59 23:59 Intake Total 2848.19 / 2848.19 1826.67 / 1826.67 Output Total 2250 / 2250 4800 / 4800 Balance 598.19 / 598.19 -2973.33 / -2973.33 General: Alert, Oriented x3, Cooperative HEENT: Atraumatic, PERRLA, EOMI, Normocephalic Neck: Supple, No JVD, Negative Carotid Bruits Lungs: Clear to auscultation, Normal air movement Cardiovascular: Regular rate, No murmurs Abdomen: Bowel Sounds Present, Soft, Non Tender, - - incision Extremities: No edema, Capillary Refill Less than 3 Seconds Skin: No rashes, No breakdown Musculoskeletal: No Tenderness to Palpation of Joints or Extremities Neurological: Cranial nerves II-XII grossly intact Psych/Mental Status: Normal Affect, Appropriate Current Medications Acetaminophen (Tylenol) 1,000 mg PO Q8H PRN PRN PRN Reason: Pain Score 1-3/10;Temp>99.6F Bisacodyl (Dulcolax) 10 mg RECTAL UD PRN PRN Reason: If no BM Hydrocortisone (Hytone) 1 applic TOPICAL TID PRN PRN; Protocol PRN Reason: Discomfort Naloxone HCl 4 mg/ Dextrose 504 mls @ 0 mls/hr IV .Q0M PRN; Protocol PRN Reason: Respiratory depression Ibuprofen (Motrin) 600 mg PO Q6H PRN PRN PRN Reason: Pain Score 1-3/10 Ketorolac Tromethamine (Toradol) 30 mg IV Q6H PALLAVI Stop: 03/31/19 13:01 Last Admin: 03/31/19 06:37 Dose: 30 mg Documented by: Methylergonovine Maleate (Methergine) 0.2 mg IM X1 PRN PRN Reason: Uterine Atony Last Admin: 03/29/19 12:33 Dose: 0.2 mg Documented by: Naloxone HCl (Narcan) 0.02 mg IV Q1M PRN PRN Reason: RR <10 and pt unresponsive Ondansetron HCl (Zofran) 4 mg IV Q4H PRN PRN PRN Reason: Nausea Oxycodone HCl (Oxyir) 5 - 10 mg PO Q4H PRN PRN PRN Reason: Pain Score 4-10/10 Prochlorperazine Edisylate (Compazine Iv) 10 mg IV Q6H PRN PRN PRN Reason: NAUSEA Senna/Docusate Sodium (Senokot-S, Margie-Colace) 0 tablet PO DAILY PRN PRN Reason: Constipation Simethicone (Mylicon) 80 mg PO PCHS PRN PRN Reason: Indigestion/stomach pain Last Admin: 03/30/19 14:01 Dose: 80 mg Documented by: Sodium Chloride () 5 - 15 ml IV UD PRN PRN Reason: SALINE FLUSH Last Admin: 03/31/19 06:37 Dose: 10 ml Documented by: Zolpidem Tartrate (Ambien (Generic)) 5 mg PO QHS PRN PRN PRN Reason: Insomnia Discharge Diet: No Restrictions Discharge Activity: May not drive while taking narcotic pain medications., May Shower, May Take a Tub Bath May resume sexual activity in: 4-6 weeks Additional Activity Instructions:: Nothing in the vagina for 4-6 weeks. You may return to work/school in 6 weeks. Call your doctor if your incision/area has: Continuous Slow Oozing, Sudden Increased Bleeding, Increased Pain/ Swelling, Increased Redness, Foul Smelling Discharge Call your doctor if you observe: Fever of 101 or Higher, Inability to urinate, Inability to have a bowel movement, Using more than one pad per hour Home Medications: Medications to take at Discharge Vits [Prenatabs FA ] 1 tablet PO DAILY 03/13/14 Docusate Sodium [Colace] 100 mg PO BID PRN PRN #60 cap 03/29/19 Oxycodone [Oxyir] 5 mg PO Q6H PRN PRN 7 Days #20 tab 03/29/19 Following Prescrptions Were Given to Patient: Docusate Sodium [Colace] 100 mg PO BID PRN PRN #60 cap PRN Reason: Constipation Transmission Status: Received by [facility] [id number] Oxycodone [Oxyir] 5 mg PO Q6H PRN PRN 7 Days #20 tab PRN Reason: Pain Score 6-10/10 Transmission Status: Received by [facility] [id number] Primary Care Physician: Care Physician,No Primary [Primary Care Provider] - Please Follow Up With: Zach Goldstein MD - [phone] When: Call to make an appointment for an incision check in 2 weeks. Disposition: Home Patient Condition:: Good Medical Necessity - Tobacco Use Smoking Status: Never smoker Meaningful Use Info Meaningful Use Diagnoses (Choose all that apply): None applicable
[2019-03-31] MEDS: Senna/Docusate Sodium 1 Tablet PO (12:29)
[2019-03-31] MEDS: Ibuprofen 600 MG Tablet PO (12:29)
[2019-03-31 14:45] VITALS: BP 100/67; RESP 16; TEMP 36.6
== END 2019-03-31 16:58 | disposition home or self-care (01) | DRG 787 ==
PROVIDERS: Admitting Provider Obstetrics & Gynecology; Referring Provider Obstetrics & Gynecology; Visit Provider Obstetrics & Gynecology
PROC: 10D00Z1 Extraction of Products of Conception, Low, Open Approach (ICD-10-PCS; CPT 59514; principal; 2019-03-29 11:45)
DX: O34.211 Maternal care for low transverse scar from previous cesarean delivery (principal); O69.1XX0 Labor and delivery complicated by cord around neck, with compression, not applicable or unspecified; O99.354 Diseases of the nervous system complicating childbirth; G54.0 Brachial plexus disorders; Z3A.39 39 weeks gestation of pregnancy; Z37.0 Single live birth
CPT/HCPCS: 85025; 85027; 86850; 86900; 86901; 99218; 99251; J7120; A4216; G0378; G0463; J2405

== ENCOUNTER → 2019-05-01 14:33 | Outpatient (CLI) | payer OTHER, SELFPAY ==
[2019-03-29 10:37] VITALS: BMI 25.6
== END ==
PROVIDERS: Visit Provider Obstetrics & Gynecology
DX: N39.0 Urinary tract infection, site not specified (principal)
CPT/HCPCS: 87077; 87086; 87088; 87186

== ENCOUNTER → 2021-12-24 | Outpatient (CLI) | payer OTHER, SELFPAY ==
[2021-12-24 12:02] LABS: Absolute Lymphocyte Count 2.28 X10^3/uL (0.83-4.51); Basophil# 0.05 X10^3/uL; Basophil% 0.6 % (0-1); Eosinophil# 0.21 X10^3/uL; Eosinophils% 2.6 % (0-5); Hematocrit 38.4 % (37-47); Hemoglobin 12.6 g/dL (12.0-15.0); Lymphocyte # 2.28 X10^3/ul (0.83-4.51); Lymphocyte % 28.5 % (19-41); Mean Corp Hgb Conc 32.8 g/dL (32-36); Mean Corpuscular Hgb 27.4 pg (27.0-32.0); Mean Corpuscular Volume 83.5 fL (81-99); Mean Platelet Vol. 9.8 fl (6.2-12.0); Monocyte# 0.39 X10^3/uL; Monocyte% 4.9 % (0-10); NRBC Flagged by Analyzer 0 % (0-5); Neutrophil # 5.02 X10^3/uL (2.7-7.7); Neutrophil % 62.9 % (47-70); Platelet Count 276 K/mm3 (150-450); RBC Distribution Width CV 13.2 % (11.6-14.6); RBC Distribution Width SD 39.8 fl (35.1-43.9)
[2021-12-24 12:45] LABS: HIV - WCH Non-Reactive (Nonreactive); Hepatitis B Surface Antigen Non-Reactive (Nonreactive); Hepatitis C Antibody Non-Reactive (Nonreactive); Rubella IgG Reactive (Nonreactive); Syphilis Antibodies Non-reactive
[2021-12-25 13:59] LABS: V-Zoster IgG (Immunity) 756 index (Immune >165)
[2021-12-26 00:06] LABS: Chlamydia By Nucleic Acid AMP Negative (Negative)
[2021-12-26 11:09] LABS: Gonococcus By Nucleic Acid AMP Negative (Negative)
[2021-12-29 16:16] LABS: HPV Reflexed? NOT INDICATED
== END | disposition home or self-care (01) ==
LOC: WOBLAB 10:50
PROVIDERS: Visit Provider Obstetrics & Gynecology
DX: Z34.81 Encounter for supervision of other normal pregnancy, first trimester (principal); Z12.4 Encounter for screening for malignant neoplasm of cervix; Z11.3 Encounter for screening for infections with a predominantly sexual mode of transmission
CPT/HCPCS: 36415; 85025; 86703; 86762; 86780; 86787; 86803; 87077; 87086; 87088; 87186; 87340; 87491; 87591; 88175; G0145

== ENCOUNTER → 2022-03-20 | Outpatient (CLI) | payer OTHER, SELFPAY ==
[2022-03-20 12:55] LABS: Absolute Lymphocyte Count 2.12 X10^3/uL (0.83-4.51); Absolute Neutrophil Count 7.1 X10^3/uL (2.0-7.7); Basophil# 0.02 X10^3/uL; Basophil% 0.2 % (0-1); Eosinophil# 0.06 X10^3/uL; Eosinophils% 0.6 % (0-5); Hematocrit 32.5 % (37-47); Hemoglobin 10.8 g/dL (12.0-15.0); Lymphocyte # 2.12 X10^3/ul (0.83-4.51); Lymphocyte % 21.3 % (19-41); Mean Corp Hgb Conc 33.2 g/dL (32-36); Mean Corpuscular Volume 84.2 fL (81-99); Mean Platelet Vol. 10.2 fl (6.2-12.0); NRBC Flagged by Analyzer 0 % (0-5); Neutrophil # 7.14 X10^3/uL (2.7-7.7); Neutrophil % 71.8 % (47-70); Platelet Count 266 K/mm3 (150-450); RBC Distribution Width SD 39.4 fl (35.1-43.9); Red Blood Count 3.86 M/mm3 (4.2-5.4)
[2022-03-20 13:08] LABS: Glucose Challenge Gest 1H 50g 137 mg/dL (70-140)
== END | disposition home or self-care (01) ==
LOC: WOBLAB 11:17
PROVIDERS: Visit Provider Obstetrics & Gynecology
DX: Z34.82 Encounter for supervision of other normal pregnancy, second trimester (principal)
CPT/HCPCS: 36415; 82950; 85025

== ENCOUNTER → 2022-06-05 | Outpatient (CLI) | payer OTHER, SELFPAY ==
[2022-06-05 17:13] LABS: Absolute Lymphocyte Count 2.46 X10^3/uL (0.83-4.51); Absolute Neutrophil Count 8.3 X10^3/uL (2.0-7.7); Basophil# 0.04 X10^3/uL; Basophil% 0.3 % (0-1); Eosinophil# 0.05 X10^3/uL; Eosinophils% 0.4 % (0-5); Hematocrit 31.7 % (37-47); Hemoglobin 9.5 g/dL (12.0-15.0); Lymphocyte # 2.46 X10^3/ul (0.83-4.51); Mean Corpuscular Hgb 22.4 pg (27.0-32.0); Mean Corpuscular Volume 74.6 fL (81-99); Mean Platelet Vol. 10.9 fl (6.2-12.0); Monocyte# 0.69 X10^3/uL; Monocyte% 5.9 % (0-10); NRBC Flagged by Analyzer 0.3 % (0-5); Neutrophil # 8.33 X10^3/uL (2.7-7.7); Platelet Count 194 K/mm3 (150-450); RBC Distribution Width CV 15.7 % (11.6-14.6); RBC Distribution Width SD 41.7 fl (35.1-43.9); Red Blood Count 4.25 M/mm3 (4.2-5.4); White Blood Count 11.7 K/mm3 (4.4-11.0)
[2022-06-05 18:09] LABS: Syphilis Antibodies Non-reactive
== END | disposition home or self-care (01) ==
LOC: WOBLAB 16:26
PROVIDERS: Visit Provider Obstetrics & Gynecology
DX: Z34.83 Encounter for supervision of other normal pregnancy, third trimester (principal)
CPT/HCPCS: 36415; 85025; 86780; 87081

== ENCOUNTER 2022-06-22 19:05 | Inpatient (IN) | payer OTHER, SELFPAY ==
[2022-06-22 18:28] VITALS: BP 134/77; PULSE 110; TEMP 36.4
[2022-06-22 18:32] VITALS: BMI 27.6
[2022-06-22 19:04] LABS: ROM Internal Control Test YES-OK TO RESULT pt. (Internal QC)
[2022-06-22 19:06] LABS: ROM Patient Test POSITIVE (Negative)
[2022-06-22 19:20] LABS: Mucous, Urine 0 SEEN /hpf (<or=2+); Red Blood Cells-Urine 0 SEEN /hpf (0-5)
[2022-06-22 19:25] LABS: Color, Urine Yellow (Yellow); Glucose, Dipstick Normal (Normal); Ketone-Dipstick 15 mg/dl (Negative); Leukocyte Esterase-Dipstick 500 /ul (Negative); Nitrite-Dipstick Positive (Negative); Occult Blood-Urine 25 /ul (Negative); Protein-Dipstick 15 mg/dl (Negative); Specific Gravity, Urine 1.015 (1.002-1.030); Urine Bilirubin Dipstick Negative (Negative); Urine Clarity Cloudy (Clear); Urine Urobilinogen Normal (Normal)
[2022-06-22 19:51] LABS: Bacteria 1+ /hpf (None Seen); Squamous Epithelial Cells - UA 10-25 SEEN /hpf (5-10); White Blood Cells 50-100 SEEN /hpf (0-5)
--- NOTE | 2022-06-22 20:10 | PCM.HP.BLA ---
History and Physical Date of Admission: 06/22/22 HPI: 31 yo at 39/2w, ALISE 06/27/22 by LMP, admitted for repeat section with rupture of membranes. Patient reports leaking since Wednesday morning. Denies regular contractions or vaginal bleeding. Reports movement. Denies headache or vision changes, chest pain or shortness of breath, nausea or vomiting, diarrhea or constipation, fevers or chills. 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 Patient had epidural for her first delivery, she elected for general anesthesia for second section. She reported worsening of brachial plexus symptoms about 1 month after her first delivery. Patient reports that with massage and physical therapy symptoms improved greatly within a few weeks after they began. They are not sure how much labor and position changes, delivery, breast-feeding only baby contributed to her discomfort. Patient did have anesthesia consults, with okay for general anesthesia. However today with assessment by HEEL EDGE INKER MACHINE, determined that spinal anesthesia may be appropriate as the brachial and lumbar plexuses are separate and her symptoms worsened about 1 month . Patient comfortable with spinal anesthesia. 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 Brachial plexus injury Surgical history: 1. section x2 Medications: Iron, vitamin Allergies: Benadryl and prednisone Family history: Noncontributory Social history: Denies tobacco, alcohol, drug use Review of system: Negative otherwise stated above Physical exam: Vital signs: Blood pressure 134/77, heart rate 110, temp 97.6 ?F General: No acute distress HEENT: Normal cephalic/atraumatic, PERRLA Cardiorespiratory: No increased effort Abdomen: Soft, nontender, gravid Extremities: Minimal pedal edema Neurologic: Cranial nerves II through XII grossly intact, hand clawing Musculoskeletal strength 5 out of 5 throughout all extremities Cervical exam: 1 cm per RN, ROM positive FHR: 135/mod gigi/+accel/late decel x1, rare variable decel [place]: quiet Assessment/plan: 31 yo at 39/2w, ALISE 06/27/22 by LMP, admitted for repeat section with rupture of membranes. ?Admit patient for rupture of membranes at 39 weeks, for repeat section. Complicated by brachial plexus injury in childhood, patient reassessed by anesthesia this evening and patient amenable to spinal anesthesia at this time. She had previous planned general anesthesia due to her history. Readdressed with patient, patient and comfortable with plan for spinal anesthesia. ?2 g Ancef and 500 mg of azithromycin preoperatively All risk, benefits, alternatives discussed patient. Risk include, but are not limited to: Risk of bleeding to the point transfusion, infection, injury to surrounding tissue including bowel/bladder potentially requiring prolonged Avendano catheter use, VTE, ICU admission. Patient aware and consented. Proceed in a nonemergent fashion. Assessment & Plan Assessment/Plan (1) Brachial plexus neuropathy:
[2022-06-22] MEDS: Lactated Ringers 1,000 ML 999 ML IV (20:40)
[2022-06-22 21:06] VITALS: BP 127/81; PULSE 115; RESP 16; TEMP 37; O2SAT 97
[2022-06-22 21:07] VITALS: BP 127/81; PULSE 107; PULSE 115; O2SAT 97
[2022-06-22 21:17] LABS: Absolute Neutrophil Count 9.1 X10^3/uL (2.0-7.7); Basophil# 0.06 X10^3/uL; Basophil% 0.5 % (0-1); Eosinophil# 0.06 X10^3/uL; Eosinophils% 0.5 % (0-5); Hematocrit 34.1 % (37-47); Hemoglobin 10.1 g/dL (12.0-15.0); Lymphocyte % 21.5 % (19-41); Mean Corp Hgb Conc 29.6 g/dL (32-36); Mean Corpuscular Volume 74.1 fL (81-99); Mean Platelet Vol. 11.4 fl (6.2-12.0); Monocyte# 0.54 X10^3/uL; Monocyte% 4.3 % (0-10); NRBC Flagged by Analyzer 0 % (0-5); Neutrophil # 9.07 X10^3/uL (2.7-7.7); Neutrophil % 72.2 % (47-70); Platelet Count 242 K/mm3 (150-450); RBC Distribution Width CV 18.3 % (11.6-14.6); RBC Distribution Width SD 45.3 fl (35.1-43.9); White Blood Count 12.6 K/mm3 (4.4-11.0)
[2022-06-22] MEDS: Lactated Ringers 1,000 ML 150 ML IV (21:43)
[2022-06-22 21:45] LABS: Syphilis Antibodies Non-reactive
[2022-06-22] MEDS: Sodium Citrate/Citric Acid 30 ML UDC PO (22:18)
[2022-06-22] MEDS: Cefazolin 2 GM in 0.9% Normal Saline 100 ML IV (22:33)
--- NOTE | 2022-06-22 23:38 | OP.PCM_ITS ---
Maternal Data Information Final ALISE: 06/27/22 Final ALISE Source: LMP Details Operative Information Date of Procedure: 06/22/22 Pre-Operative Diagnosis: Hannah intrauterine at term, repeat section, rupture membranes Post-Operative Diagnosis: Hannah intrauterine at term, repeat section, rupture membranes, adhesions Indications Narrative: 31-year-old at 39/2 weeks, admitted for rupture membranes for repeat section. All risk, benefits, alternatives were discussed with the p atient. Risks include but are not limited to: Risk of bleeding to the point of transfusion, infection, injury to surrounding tissue including bowel/bladder potentially requiring prolonged Avendano catheter use, VTE, ICU admission. Patient aware and consented. Classification: SHAHID Procedure Type: low transverse Type of Anesthesia: Spinal Estimated Blood Loss: 700cc Fluids Replaced: 1100cc Findings Description of Procedure: Procedure: Patient taken the operating room and spinal anesthesia placed. Patient placed in the supine position with a left lateral tilt. Prepped and draped in the usual sterile fashion. Pfannenstiel skin incision made through skin and carried down through subcutaneous tissue. Adhesions of the fascia to the subcutaneous tissue and rectus muscles were noted. Fascia incised bilaterally and extended bilaterally using Banuelos scissors. Kamran clamps grasped. Fascial edge which was tented up and underlying rectus muscles were dissected off bluntly and sharply at midline using Banuelos scissors. Kamran clamps moved to inferior fascial edge which was tented up and underlying rectus muscles were dissected off bluntly and sharply at midline in a similar fashion. Rectus muscles were using hemostats, adhesions lysed with Bovie. Hemostat grasped peritoneum. Peritoneum entered sharply with Metzenbaum scissors. Rectus muscle with Bovie. Peritoneal entry extended bluntly. Bladder blade placed. Low transverse uterine incision made with scalpel and extended bluntly. Amniotomy clear fluid. Hand placed into the uterine cavity and head elevated to the level of the hysterotomy. Bladder blade removed. Head delivered followed by body. No nuchal cord. Cord clamped and cut and baby handed to nursing. Spontaneous delivery of placenta. Uterus exteriorized and cleared of all clots. Hysterotomy closed with a running stitch and a second horizontal imbricating stitch. Hemostatic with Bovie. Uterus replaced into the abdominal cavity. Sukumar placed. Peritoneum and muscle closed with a running stitch. Fascia closed with running stitch. Subcutaneous tissue reapproximated with suture. Skin closed with a running subcuticular stitch. At the end of the procedure all needle, lap, sponge counts were correct. UOP: 100cc yellow slightly cloudy urine (present on placement of Avendano catheter) A Gender: Male (1 minute): 8 (5 minute): 9 Complications Complications: None
[2022-06-22] MEDS: Oxytocin 15 Units/NS 250ml 15 UNITS/250 ML IV.SOLN 83 UNITS IV (23:58)
[2022-06-23] VITALS (17 sets, daily range): BP systolic 97–140; BP diastolic 49–81; PULSE 69–101; RESP 16–18; TEMP 36.1–37; O2SAT 95–98
[2022-06-23] MEDS: 0.9% Saline Lock 10 ML Syringe IV ×2 (00:30→10:09)
[2022-06-23] MEDS: Ketorolac 30 MG/ML Syringe IV ×2 (00:31→08:34)
[2022-06-23] MEDS: Lactated Ringers 1,000 ML 100 ML IV (03:11)
[2022-06-23 06:54] LABS: Hematocrit 28.5 % (37-47); Hemoglobin 8.3 g/dL (12.0-15.0); Mean Corp Hgb Conc 29.1 g/dL (32-36); Mean Corpuscular Volume 75.4 fL (81-99); Mean Platelet Vol. 10.5 fl (6.2-12.0); Platelet Count 191 K/mm3 (150-450); Red Blood Count 3.78 M/mm3 (4.2-5.4); White Blood Count 11.6 K/mm3 (4.4-11.0)
--- NOTE | 2022-06-23 09:36 | PN.OBGYN_ITS ---
Subjective Subjective No overnight complaints. Pain well controlled Objective Data Objective Data Vital Signs: Vital Signs Temp Pulse Resp BP Pulse Ox O2 Del Method 98.5 F 69 16 106/66 96 Room Air 06/23/22 08:22 06/23/22 08:22 06/23/22 08:22 06/23/22 08:22 06/23/22 08:22 06/23/22 08:22 Oxygen Delivery Method Room Air Weight: 155 lb 10.342 oz Body Mass Index (BMI) 27.6 Intake & Output: Intake and Output for Last 24 Hours 06/21/22 06/22/22 06/23/22 23:59 23:59 23:59 Intake Total 1365 / 1707.5 592.5 / 592.5 Output Total 1000 / 1000 Balance 1365 / 1707.5 -407.5 / -407.5 Lab / Micro Data Result Diagrams: 06/23/22 06:45 Labs: Laboratory Results - last 24 hr 06/22/22 18:30: Urine Color Yellow, Urine Clarity Cloudy, Urine pH 6.0, Ur Specific [place] 1.015, Urine Protein 15 H, Urine Glucose (UA) Normal, Urine Ketones 15 H, Urine Occult Blood 25 H, Urine Nitrite Positive H, Urine Bilirubin Negative, Urine Urobilinogen Normal, Ur Leukocyte Esterase 500 H, Urine RBC 0 SEEN, Urine WBC 50-100 SEEN, Ur Squamous Epith Cells 10-25 SEEN, Urine Bacteria 1+, Urine Mucus 0 SEEN 06/22/22 18:40: Vag Amniotic Fld Detect POSITIVE H 06/22/22 20:40: WBC 12.6 H, RBC 4.60, Hgb 10.1 L, Hct 34.1 L, MCV 74.1 L, MCH 22.0 L, MCHC 29.6 L, RDW Std Deviation 45.3 H, RDW Coeff of Joon 18.3 H, Plt Count 242, MPV 11.4, Immature Gran % (Auto) 1.000 H, Neut % (Auto) 72.2 H, Lymph % (Auto) 21.5, [place] % (Auto) 4.3, Eos % (Auto) 0.5, Baso % (Auto) 0.5, Absolute Neuts (auto) 9.1 H, Absolute Lymphs (auto) 2.70, Nucleated RBC % 0 03/13/23 20:40: Blood Type A POSITIVE, Antibody Screen NEGATIVE 06/22/22 20:40: Syphilis Total Ab Non-reactive 06/23/22 06:45: WBC 11.6 H, RBC 3.78 L, Hgb 8.3 L, Hct 28.5 L, MCV 75.4 L, MCH 22.0 L, MCHC 29.1 L, RDW Std Deviation 46.0 H, RDW Coeff of Joon 18.0 H, Plt Count 191, MPV 10.5 Physical Exam Const alert, oriented x3, no apparent distress, average body habitus, healthy appearing and well nourished HEENT normocephalic and moist oral mucous membranes Eyes PERRL Neck full ROM Resp normal respiratory effort, no retractions and no use of accessory muscles GI GI Narrative: Soft, nontender, bandage clean dry and intact Psych mental status grossly normal, affect normal, speech normal and activity/motor behavior normal Assessment & Plan (1) delivery delivered: PLAN: Postop day 1 status post repeat section. Breast-feeding. Pain well controlled. Likely home tomorrow
--- NOTE | 2022-06-23 10:25 | NURSING ---
Patient ambulated with two assist. Patient tolerated well. Patient resting in chair with feet elevated.
[2022-06-23] MEDS: Senna/Docusate Sodium 1 Tablet PO (11:00)
[2022-06-23] MEDS: Enoxaparin 40 MG/0.4 ML Syringe SC (11:01)
[2022-06-24 01:14] VITALS: BP 106/71; PULSE 91; RESP 16; TEMP 36.3; O2SAT 99
--- NOTE | 2022-06-24 07:26 | PCM.DC.BLA ---
Discharge Summary Date of Admission: 06/22/22 Date of Discharge: 06/24/22 Summary: Patient arrived on 06/22/2022 with spontaneous rupture of membranes and history of section. Repeat section performed on 06/22/2022 at 39 weeks. Patient with routine postoperative recovery. Discharged home on 06/24/2022 Meaningful Use Info Meaningful Use Diagnoses (Choose all that apply): None applicable Discharge Plan Admission Admit Date/Time: 06/22/22 19:05 Primary Reason for Your Visit: section Attending Provider: Mari Orourke Primary Care Provider: Arturo Parra Instructions Additional Instructions / Restrictions: Regular diet. Okay to shower. No tub baths for 2 weeks. No intercourse for 4 to 6 weeks. No lifting over 25 pounds for 2 to 3 weeks. Call if fevers, chills, chest pain, shortness of breath. Follow-up 2 weeks postoperatively Discharge Orders/Prescriptions Prescriptions: New oxycodone 5 mg Tablet 5 mg PO Q6H PRN (Reason: pain) 4 Days Qty: 16 0RF Continued Prenatabs FA 1 TABLET tablet 1 tab PO DAILY ferrous sulfate 325 mg (65 mg iron) Tablet 325 mg PO DAILY Referrals / Follow Up: Arturo Parra MD [Primary Care Provider] - Disposition Disposition (needs filled in before D/C Order can be placed): Home, Self Care
--- NOTE | 2022-06-24 07:27 | PCM.PN.OB ---
Subjective Subjective No overnight complaints Objective Data Objective Data Vital Signs: Vital Signs Temp Pulse Resp BP Pulse Ox O2 Del Method FiO2 97.4 F L 91 16 106/71 99 Room Air 96 06/24/22 01:14 06/24/22 01:14 06/24/22 01:14 06/24/22 01:14 06/24/22 01:14 06/24/22 01:14 06/23/22 12:47 Oxygen Delivery Method Room Air Weight: 155 lb 10.342 oz Body Mass Index (BMI) 27.6 Intake & Output: Intake and Output for Last 24 Hours 06/22/22 06/23/22 06/24/22 23:59 23:59 23:59 Intake Total 1365 / 1707.5 1320.83 / 1320.83 Output Total 1700 / 1700 Balance 1365 / 1707.5 -379.17 / -379.17 Lab / Micro Data Result Diagrams: 06/23/22 06:45 Physical Exam Const alert, oriented x3, no apparent distress, average body habitus, healthy appearing and well nourished HEENT normocephalic and moist oral mucous membranes Eyes PERRL Neck full ROM Resp normal respiratory effort, no retractions and no use of accessory muscles Psych mental status grossly normal, affect normal, speech normal and activity/motor behavior normal Assessment & Plan (1) delivery delivered: PLAN: Postop day 2 status post repeat section. Breast-feeding. Pain well controlled. Okay to discharge home today
[2022-06-24 08:15] VITALS: BP 106/68; PULSE 86; RESP 16; TEMP 36.6; O2SAT 97
[2022-06-24] MEDS: Ibuprofen 600 MG Tablet PO (10:14)
[2022-06-24] MEDS: Acetaminophen 500 MG Tablet 1000 MG PO (10:14)
[2022-06-24] MEDS: Senna/Docusate Sodium 1 Tablet PO (10:15)
--- NOTE | 2022-06-24 11:20 | CASEMGMT ---
Social Work Labor and Delivery Consult received for maternal history of anxiety. Records reviewed. To patient's room for consult at 1120 and found patient had already been discharged. Patient discharged without being seen by -MARISEL Garay
== END 2022-06-24 11:10 | disposition home or self-care (01) | DRG 787 ==
LOC: WPOUT 19:11 → WP 19:11
PROVIDERS: Admitting Provider Student in an Organized Health Care Education/Training Program; PCP Family Medicine; Referring Provider Student in an Organized Health Care Education/Training Program; Visit Provider Student in an Organized Health Care Education/Training Program
DX: O76 Abnormality in fetal heart rate and rhythm complicating labor and delivery (principal); O99.354 Diseases of the nervous system complicating childbirth; G54.0 Brachial plexus disorders; O34.211 Maternal care for low transverse scar from previous cesarean delivery; O42.12 Full-term premature rupture of membranes, onset of labor more than 24 hours following rupture; O99.892 Other specified diseases and conditions complicating childbirth; N73.6 Female pelvic peritoneal adhesions (postinfective); Z37.0 Single live birth; Z3A.39 39 weeks gestation of pregnancy; Z87.59 Personal history of other complications of pregnancy, childbirth and the puerperium
CPT/HCPCS: 59025; 59050; 81001; 84112; 85025; 85027; 86780; 86850; 86900; 86901; 99221; J7120; A4216; G0378; J2405